=== PATIENT | female | born 1990 | race Caucasian/White ===

== ENCOUNTER 2018-05-14 16:16 | Emergency (ER) | payer OTHER ==
--- NOTE | 2018-05-14 16:41 | Emergency Department Record ---
History of Present Illness - General Chief Complaint: Palpitations Stated Complaint: HEART FLUTTERING Time Seen by Provider: 05/14/18 16:30 Source: Patient Mode of Arrival: Ambulatory Limitations: No limitations - History of Present Illness Initial Comments: The patient is here due to an episode of her heart racing about 90 minutes ago. She had just finished lunch and then felt the onset of the hear racing. She took her pulse and counted it at 140. During the episode she did feel flushed and nauseated and mildly dizzy. She denied any CP, SOB, BRIDGET, pleuritic chest pain or leg pain. The patient had a similar episode about 3 weeks ago and did see her PCP for it 2 days ago. She was told to come to the ER if it happens again. Presently she feels back to normal. She has no hx of any cardiac issues or SVT. MD Complaint: "Heart racing", Palpitations Onset/Timin -: Hour(s) Associated Symptoms: Anxiety, Diaphoresis, Nausea/vomiting - Related Data Home Medications Medication Instructions Recorded Confirmed Last Taken Loratadine [Claritin] 10 mg PO DAILY 05/14/18 05/14/18 05/14/18 Metformin HCl 1,000 mg PO BID 05/14/18 05/14/18 05/14/18 Multivitamin [Multi-Vitamin Daily] 1 each PO DAILY 05/14/18 05/14/18 05/14/18 Allergies Allergy/AdvReac Type Severity Reaction Status Date / Time hydromorphone Allergy Severe CHEST PAIN Verified 05/14/18 16:21 Travel Screening - Travel/Exposure Within Last 30 Days Have you traveled within the last 30 days?: No - Travel Symptoms Symptom Screening: None Review of Systems Constitutional: Denies: Chills, Fever Eyes: Denies: Eye discharge ENT: Denies: Congestion Respiratory: Denies: Cough Cardiovascular: Reports: Arrhythmia. Denies: Chest pain Endocrine: Denies: Fatigue Gastrointestinal: Reports: Nausea Genitourinary: Denies: Dysuria Musculoskeletal: Denies: Arthralgia Skin: Denies: Bruising Past Medical History - SOCIAL HISTORY Smoking Status: Never smoker Alcohol Use: None Drug Use: None - RESPIRATORY Hx Respiratory Disorders: No - CARDIOVASCULAR Hx Cardio Disorders: No - NEURO Hx Neuro Disorders: Yes Hx Headaches: Yes (migraines last time 2016) Hx Seizures: Yes (last seizure 1991) - GI Hx GI Disorders: No - Hx Genitourinary Disorders: No - ENDOCRINE Hx Endocrine Disorders: Yes Hx Diabetes: Yes (type 2 - 2018) - MUSCULOSKELETAL Hx Musculoskeletal Disorders: No - PSYCH Hx Psych Problems: No - HEMATOLOGY/ONCOLOGY Hx Hematology/Oncology Disorders: No Family Medical History Any Significant Family History?: Yes Hx Diabetes: Mother Hx Heart Disease: Mother *Heart Comment: 3 MIs and stents at age 50 Hx HTN: Father Physical Exam - General General Appearance: Alert, Oriented x3, Cooperative, No acute distress - Head Head exam: Atraumatic, Normocephalic, Normal inspection - Eye Eye exam: Normal appearance, PERRL, EOMI - ENT Throat exam: Normal inspection. negative: Tonsillar erythema, Tonsillar exudate - Neck Neck exam: Normal inspection, Full ROM. negative: Tenderness - Respiratory Respiratory exam: Normal lung sounds bilaterally. negative: Respiratory distress - Cardiovascular Cardiovascular Exam: Regular rate, Normal rhythm, Normal heart sounds. negative : Diastolic murmur, Systolic murmur - GI/Abdominal GI/Abdominal exam: Soft, Normal bowel sounds. negative: Tenderness - Extremities Extremities exam: Normal inspection, Full ROM, Normal capillary refill. negative: Tenderness - Back Back exam: Reports: Normal inspection - Neurological Neurological exam: Alert, Normal gait. negative: Abnormal gait, Motor sensory deficit - Psychiatric Psychiatric exam: negative: Anxious Course Vital Signs 05/14/18 05/14/18 16:23 16:31 Temperature 98.3 F Pulse Rate 104 H Respiratory 20 Rate Blood Pressure 144/82 Pulse Ox 99 - Reevaluation(s) Reevaluation #1: The patient is doing a lot better at this time and has had no further episodes of heart racing. I did discuss the issue with the patient and the need for F/U. 05/14/18 17:54 Medical Decision Making - Data Complexity MDM Data: EKG Ordered and/or Reviewed - Lab Data Result diagrams: 05/14/18 16:55 05/14/18 16:55 - EKG Data -: EKG Interpreted by Me EKG: No Acute Changes, Normal EKG Disposition Disposition: Discharge Clinical Impression: Heart palpitations Disposition: Home, Self-Care Condition: (2) Stable Instructions: Heart Palpitations (ED) Additional Instructions: Continue your regular medicines and please do not drink caffiene. Please see your family doctor next week for recheck. Return to the ER for any problems or pain. Forms: Patient Portal Access Time of Disposition: 17:53 Quality - Quality Measures Quality Measures: N/A - Blood Pressure Screening View Details: Yes Does Patient Have Any of the Following: No Blood Pressure Classification: Pre-Hypertensive BP Reading Systolic Measurement: 144 Diastolic Measurement: 82 Screening for High Blood Pressure: < Pre-Hypertensive BP, F/U Documented > [ [id number]] Pre-Hypertensive Follow-up Interventions: Referral to alternative/primary care provider.
[2018-05-14 17:06] LABS: BASO % 0.4 % (0-6); EOS % 1.5 % (0-6); GRAN % 55.9 % (47-80); HEMATOCRIT 43.8 % (35.0-47.0); HEMOGLOBIN 15.2 gm/dl (11.6-16.0); LYMPH % 34.5 % (16-45); MEAN CELL VOLUME 87.6 fl (81-97); MEAN CORPUSCULAR HEMOGLOBIN 30.4 pg (27-33); MEAN CORPUSCULAR HGB CONC 34.7 g/dl (32-36); MEAN PLATELET VOLUME 9.6 fl (7.4-10.4); MONO % 7.7 % (0-9); PLATELET COUNT 355 K/uL (130-400); RED CELL DISTRIBUTION WIDTH 12.6 % (11.5-14.5); WHITE BLOOD COUNT W/O DIFF 13.4 K/uL (4.2-12.2)
[2018-05-14 17:21] LABS: BLOOD UREA NITROGEN 11 mg/dL (6-20); CREATININE 0.7 mg/dL (0.5-0.9); EST GLOMERULAR FILTRATION RATE > 60 mL/min; TOTAL PROTEIN 7.9 g/dL (6.6-8.7)
[2018-05-14 17:23] LABS: GLUCOSE,RANDOM 94 mg/dL (74-109)
[2018-05-14 17:26] LABS: ALB/GLOB RATIO 1.4 (1.1-1.8); ALBUMIN 4.6 g/dL (4.0-5.0); ALKALINE PHOSPHATASE 67 U/L (45-87); ALT/SGPT 23 U/L (<33); AST/SGOT 19 U/L (10.0-35.0)
== END 2018-05-14 18:04 | disposition home or self-care (01) ==
LOC: ER 16:16
DX: R00.2 Palpitations (principal); R11.0 Nausea; R42 Dizziness and giddiness; R61 Generalized hyperhidrosis; E11.9 Type 2 diabetes mellitus without complications; Z79.84 Long term (current) use of oral hypoglycemic drugs
CPT/HCPCS: 80053; 84703; 85025; 93005; 93010; 99284